=== PATIENT | male | born 1970 | race Caucasian/White ===

== ENCOUNTER 2019-08-10 22:29 | Emergency (ER) | payer OTHER, BC ==
[2019-08-10] MEDS ORDERED: ACETAMINOPHEN 500 MG TAB ONE (23:13)
[2019-08-10 23:34] LABS: Absolute Lymphocytes (CBC) 2.9 K/uL (0.7-4.9); Basophils % 2.8 % (0-1.3); Hematocrit 46.9 % (39.6-49.0); MPV 9.3 fL (7.6-11.3); RBC Red Blood Cell Count 4.96 M/uL (4.33-5.43)
[2019-08-10 23:46] LABS: Protime INR 0.98
[2019-08-10 23:48] LABS: ALT/SGPT 60 U/L (12-78); AST/SGOT 40 U/L (15-37); Albumin 3.2 g/dL (3.4-5.0); Alkaline Phosphatase 76 U/L (45-117); BUN Blood Urea Nitrogen 9 mg/dL (7-18); Bicarbonate 27 mmol/L (21-32); Bilirubin Direct 0.1 mg/dL (0-0.2); Bilirubin Total 0.4 mg/dL (0.2-1.0); Glucose Level 101 mg/dL (74-106); Magnesium 2.2 mg/dL (1.8-2.4); NT PRO-BNP 11 pg/mL (<125); Potassium 3.8 mmol/L (3.5-5.1); Protein, Total 7.4 g/dL (6.4-8.2); Sodium Level 140 mmol/L (136-145); Troponin (Emerg Dept Use Only) < 0.02 ng/mL (0.0-0.045)
[2019-08-11 01:35] LABS: Barbiturates NEGATIVE (NEGATIVE); Benzodiazepines NEGATIVE (NEGATIVE); Cocaine NEGATIVE (NEGATIVE); METHAMPHETAM NEGATIVE (NEGATIVE); Methadone NEGATIVE (NEGATIVE); Opiates NEGATIVE (NEGATIVE); Phencyclidine NEGATIVE (NEGATIVE); THC Cannibis NEGATIVE (NEGATIVE)
[2019-08-11 01:47] LABS: Urine Blood NEGATIVE (NEG); Urine Glucose NEGATIVE (NEG); Urine Protein NEGATIVE (NEG)
--- NOTE | 2019-08-11 01:49 | EDPHYS ---
Physician Documentation [facility] Name: Grant Encarnacion Age: 48 yrs Sex: Male : 1970 Arrival Date: 08/10/2019 Time: 22:32 Bed 18 Private MD: ED Physician Nilton Gomez HPI: 08/09 23:15 This 48 yrs old Male presents to ER via Ambulatory with complaints of Chest mh7 Pain. 23:15 The patient or guardian reports chest pain that is located primarily in the anterior mh7 chest wall, right. Onset: today. The pain does not radiate. Associated signs and symptoms: Pertinent negatives: abdominal pain, cough, diaphoresis, dizziness, headache, lower extremity pain, lower extremity swelling, lightheadedness, nausea, near syncope, palpitations, recent travel, shortness of breath, syncope, vomiting. The chest pain is described as aching. Duration: The patient or guardian reports a single episode, that is still ongoing, and unchanged. Modifying factors: The symptoms are alleviated by remaining still, the symptoms are aggravated by movement, twisting torso. Severity of pain: At its worst the pain was moderate today, in the emergency department the pain has improved moderately. The patient has experienced similar episodes in the past, multiple times. Patient reports right upper chest pain that started today after washing his car. He denies any injuries, SOB, nausea, vomiting, abdominal pain, fever, or other complaints.. Historical: - Allergies: 22:40 No Known Allergies; ao - Home Meds: 22:40 None [Active]; ao - PMHx: 22:40 None; ao - PSHx: 22:40 None; ao - Immunization history:: Adult Immunizations up to date. - Social history:: Smoking status: Patient reports the use of cigarette tobacco products, smokes one pack cigarettes per day. Patient uses alcohol, occasionally. Patient/guardian denies using street drugs, IV drugs. ROS: 23:15 Constitutional: Negative for fever, chills, and weight loss, Eyes: Negative for injury, mh7 pain, redness, and discharge, ENT: Negative for injury, pain, and discharge, Neck: Negative for injury, pain, and swelling, Respiratory: Negative for shortness of breath, cough, wheezing, and pleuritic chest pain, Abdomen/GI: Negative for abdominal pain, nausea, vomiting, diarrhea, and constipation, Back: Negative for injury and pain, : Negative for injury, bleeding, discharge, and swelling, MS/Extremity: Negative for injury and deformity, Skin: Negative for injury, rash, and discoloration, Neuro: Negative for headache, weakness, numbness, tingling, and seizure, Psych: Negative for depression, anxiety, suicide ideation, homicidal ideation, and hallucinations, Allergy/Immunology: Negative for hives, rash, and allergies, Endocrine: Negative for neck swelling, polydipsia, polyuria, polyphagia, and marked weight changes, Hematologic/Lymphatic: Negative for swollen nodes, abnormal bleeding, and unusual bruising. Exam: 23:15 Constitutional: This is a well developed, well nourished patient who is awake, alert, mh7 and in no acute distress. Head/Face: Normocephalic, atraumatic. Eyes: Pupils equal round and reactive to light, extra-ocular motions intact. Lids and lashes normal. Conjunctiva and sclera are non-icteric and not injected. Cornea within normal limits. Periorbital areas with no swelling, redness, or edema. ENT: Nares patent. No nasal discharge, no septal abnormalities noted. Tympanic membranes are normal and external auditory canals are clear. Oropharynx with no redness, swelling, or masses, exudates, or evidence of obstruction, uvula midline. Mucous membranes moist. Neck: Trachea midline, no thyromegaly or masses palpated, and no cervical lymphadenopathy. Supple, full range of motion without nuchal rigidity, or vertebral point tenderness. No Meningismus. 23:15 Cardiovascular: Regular rate and rhythm with a normal S1 and S2. No gallops, murmurs, or rubs. Normal PMI, no JVD. No pulse deficits. Respiratory: Lungs have equal breath sounds bilaterally, clear to auscultation and percussion. No rales, rhonchi or wheezes noted. No increased work of breathing, no retractions or nasal flaring. Abdomen/GI: Soft, non-tender, with normal bowel sounds. No distension or tympany. No guarding or rebound. No evidence of tenderness throughout. Back: No spinal tenderness. No costovertebral tenderness. Full range of motion. Skin: Warm, dry with normal turgor. Normal color with no rashes, no lesions, and no evidence of cellulitis. MS/ Extremity: Pulses equal, no cyanosis. Neurovascular intact. Full, normal range of motion. Neuro: Awake and alert, GCS 15, oriented to person, place, time, and situation. Cranial nerves II-XII grossly intact. Motor strength 5/5 in all extremities. Sensory grossly intact. Cerebellar exam normal. Normal gait. Psych: Awake, alert, with orientation to person, place and time. Behavior, mood, and affect are within normal limits. 23:15 Chest/axilla: Inspection: normal, Palpation: tenderness, that is moderate, that totally reproduces the patient's complaints, Axilla: are normal, Lymph nodes: lymphadenopathy is not appreciated. Vital Signs: 22:36 BP 133 / 72; Pulse 87; Resp 18; Temp 97.8; Pulse Ox 99% ; Weight 97.52 kg; Height 6 ft. ao 0 in. (182.88 cm); Pain 5/10; 08/10 00:00 BP 120 / 66; Pulse 74; Resp 16; Pulse Ox 94% on R/A; jb4 01:00 BP 128 / 71; Pulse 73; Resp 16; Pulse Ox 96% on R/A; jb4 08/09 22:36 Body Mass Index 29.16 (97.52 kg, 182.88 cm) ao MDM: 08/09 22:45 Patient medically screened. [facility] 08/10 06:42 Differential diagnosis: abnormal EKG, acute myocardial infarction, chest wall pain, [facility] costochondritis, gastritis, peptic ulcer disease. Data reviewed: vital signs, nurses notes, old medical records, lab test result(s), cardiac enzymes, troponin i, CBC, EKG, radiologic studies, plain films. Data interpreted: Pulse oximetry: on room air is 96 %. Interpretation: normal. Counseling: I had a detailed discussion with the patient and/or guardian regarding: the historical points, exam findings, and any diagnostic results supporting the discharge/admit diagnosis, lab results, radiology results. Response to treatment: the patient's symptoms have resolved after treatment, the patient's blood pressure is in an acceptable range, mental status has returned to baseline, the patient no longer shows bradycardia, the patient is not short of breath, the patient is not tachycardic, the patient's pain is gone, the patient's temperature has normalized. ED course: NAD, VSS, no focal neurological deficits. Patient refuses any further testing and wants to leave against medical advice. Explained the possibility of permanent disability and/or if serious medical condition is present and goes untreated. He verbalized that he understood this information as presented. he knows he can return with any concerns.. 20:03 Refusal of service: The patient/guardian displays adequate decision making capability [facility] and despite a detailed discussion of alternatives, benefits, risks, and consequences refuses: Admission to the hospital for further work-up and treatment, all lab tests. 08/09 23:02 Order name: Basic Metabolic Panel; Complete Time: 23:59 [facility] 08/09 23:02 Order name: CBC with Diff; Complete Time: 23:59 [facility] 08/09 23:02 Order name: LFT's; Complete Time: 23:59 [facility] 08/09 23:02 Order name: Magnesium; Complete Time: 23:59 [facility] 08/09 23:02 Order name: NT PRO-BNP; Complete Time: 23:59 [facility] 08/09 23:02 Order name: PT-INR; Complete Time: 23:59 [facility] 08/09 23:02 Order name: Troponin (emerg Dept Use Only); Complete Time: 23:59 [facility] 08/09 23:02 Order name: XRAY Chest (1 view) [facility] 08/09 23:02 Order name: EKG; Complete Time: 23:04 [facility] 08/09 23:02 Order name: Cardiac monitoring; Complete Time: 23:16 [facility] 08/09 23:02 Order name: EKG - Nurse/Tech; Complete Time: 23:16 [facility] 08/09 23:02 Order name: UDS [facility] 08/10 00:38 Order name: Urine Dipstick--Ancillary (enter results) [facility] 08/09 23:02 Order name: IV Saline Lock; Complete Time: 23:16 [facility] 08/09 23:02 Order name: Labs collected and sent; Complete Time: 23:16 [facility] 08/09 23:02 Order name: O2 Per Protocol; Complete Time: 23:16 [facility] 08/09 23:02 Order name: O2 Sat Monitoring; Complete Time: 23:16 7 Administered Medications: 08/09 23:27 Not Given (Patient Refused): Tylenol 1000 mg PO once jb4 Disposition: 08/10 06:42 Co-signature as Attending Physician, Nilton Gomez MD. mh7 Disposition: 08/11/19 01:49 Patient has left against medical advice. Impression: Chest pain, unspecified. - Patients states they are going to Home. - Condition is Stable. - Discharge Instructions: Nonspecific Chest Pain. Follow up: Private Physician; When: Today; Reason: Worsening of condition, Repeat Beta-HCG (48 Hours), Re-evaluation by your physician. - Problem is an acute exacerbation. - Symptoms are resolved. Signatures: Dispatcher [employer] EDMurtaza Chery RN RN Bobby Wilson RN RN jb4 Nilton Gomez MD MD mh7 Corrections: (The following items were deleted from the chart) 01:59 01:49 08/11/2019 01:49 Patients has left against medical advice. Impression: Chest jb4 pain, unspecified. Patient states they are going to Home. Condition is Stable. Follow up: Private Physician; When: Today; Reason: Worsening of condition, Repeat Beta-HCG (48 Hours), Re-evaluation by your physician. Problem is an acute exacerbation. Symptoms are resolved. mh7
--- NOTE | 2019-08-11 01:49 | ER ---
Nurse's Notes [facility] Name: Grant Encarnacion Age: 48 yrs Sex: Male : 1970 Arrival Date: 08/10/2019 Time: 22:32 Bed 18 Private MD: Diagnosis: Chest pain, unspecified Presentation: 08/09 22:36 Chief complaint: Patient states: Chest pain that started around 1900. Pt denies nausea ao and vomiting. Coronavirus screen: Proceed with normal triage. Ebola Screen: Patient negative for fever greater than or equal to 101.5 degrees Fahrenheit, and additional compatible Ebola Virus Disease symptoms Patient denies exposure to infectious person. Patient denies travel to an Ebola-affected area in the 21 days before illness onset. Initial Sepsis Screen: Does the patient meet any 2 criteria? No. Patient's initial sepsis screen is negative. Does the patient have a suspected source of infection? No. Patient's initial sepsis screen is negative. Risk Assessment: Do you want to hurt yourself or someone else? Patient reports no desire to harm self or others. Onset of symptoms was August 10, 2019 at 19:00. 22:36 Method Of Arrival: Ambulatory ao 22:36 Acuity: MOLLY 2 ao Historical: - Allergies: 22:40 No Known Allergies; ao - Home Meds: 22:40 None [Active]; ao - PMHx: 22:40 None; ao - PSHx: 22:40 None; ao - Immunization history:: Adult Immunizations up to date. - Social history:: Smoking status: Patient reports the use of cigarette tobacco products, smokes one pack cigarettes per day. Patient uses alcohol, occasionally. Patient/guardian denies using street drugs, IV drugs. Screenin:00 Abuse screen: Denies threats or abuse. Nutritional screening: No deficits noted. jb4 Tuberculosis screening: No symptoms or risk factors identified. Fall Risk None identified. Assessment: 23:00 General: Appears in no apparent distress. comfortable. Pain: Complains of pain in chest jb4 Pain does not radiate. Pain currently is 3 out of 10 on a pain scale. Quality of pain is described as pressure, Pain began 1830 Is continuous. Neuro: Level of Consciousness is awake, alert, obeys commands, Oriented to person, place, time, situation. Cardiovascular: Patient's skin is warm and dry. Rhythm is sinus rhythm. Respiratory: Airway is patent Respiratory effort is even, unlabored, Respiratory pattern is regular, symmetrical. GI: No signs and/or symptoms were reported involving the gastrointestinal system. : No signs and/or symptoms were reported regarding the genitourinary system. EENT: No signs and/or symptoms were reported regarding the EENT system. Derm: Skin is intact, Skin is dry, Skin is normal, Skin temperature is warm. 08/10 00:00 Reassessment: Patient appears in no apparent distress at this time. Patient and/or jb4 family updated on plan of care and expected duration. Pain level reassessed. Patient is alert, oriented x 3, equal unlabored respirations, skin warm/dry/pink. Patient states feeling better. 01:00 Reassessment: Patient appears in no apparent distress at this time. Patient and/or jb4 family updated on plan of care and expected duration. Pain level reassessed. Patient is alert, oriented x 3, equal unlabored respirations, skin warm/dry/pink. 01:50 Reassessment: Patient appears in no apparent distress at this time. Patient and/or jb4 family updated on plan of care and expected duration. Pain level reassessed. Patient is alert, oriented x 3, equal unlabored respirations, skin warm/dry/pink. Pt verbalized feeling better and wanting to go home. Provider notified, at the bedside speaking with patient. Pt informed of need for additional test prior to decision of D/c or admission. Pt refused additional test. Pt informed that symptoms could return and worsen up to the point of . Verbalized understanding of risk, AMA for signed, ambulated out of ED with steady gait. Vital Signs: 08/09 22:36 BP 133 / 72; Pulse 87; Resp 18; Temp 97.8; Pulse Ox 99% ; Weight 97.52 kg; Height 6 ft. ao 0 in. (182.88 cm); Pain 5/10; 08/10 00:00 BP 120 / 66; Pulse 74; Resp 16; Pulse Ox 94% on R/A; jb4 01:00 BP 128 / 71; Pulse 73; Resp 16; Pulse Ox 96% on R/A; jb4 08/09 22:36 Body Mass Index 29.16 (97.52 kg, 182.88 cm) ao ED Course: 08/09 22:32 Patient arrived in ED. cf2 22:39 Triage completed. ao 22:40 Arm band placed on right wrist. Patient placed in an exam room, on a stretcher, on ao pulse oximetry, Patient notified of wait time. 22:45 Nilton Gomez MD is Attending Physician. [facility] 23:00 Bed in low position. Call light in reach. Side rails up X 1. Verbal reassurance given. jp3 compliance monitor on. Pulse ox on. NIBP on. 23:02 Bobby Scott, RN is Primary Nurse. jb4 23:05 EKG done, by ED staff, reviewed by Nilton Gomez MD. jp3 23:15 Initial lab(s) drawn, by me, sent to lab. Inserted saline lock: 20 gauge in right jp3 antecubital area, using aseptic technique. Blood collected. Patient maintains SpO2 saturation greater than 95% on room air. 08/10 01:58 No provider procedures requiring assistance completed. IV discontinued, intact, jb4 bleeding controlled, No redness/swelling at site. Pressure dressing applied. 02:51 XRAY Chest (1 view) In Process Unspecified. EDMS Administered Medications: 08/09 23:27 Not Given (Patient Refused): Tylenol 1000 mg PO once jb4 Outcome: 08/10 01:00 AMA jb4 Condition: stable 01:59 Patient left the ED. jb4 Signatures: Dispatcher [employer] EDMS Murtaza Reese, RN RN Bobby Wilson, RN RN jb4 Raphael Robertson 3 Phillip Hearn 2 Nilton Gomez MD MD [facility] Corrections: (The following items were deleted from the chart) 01:58 01:00 BP 128 / 71; Pulse 73bpm; Resp 96bpm; Pulse Ox 96% RA; jb4 jb4
[2019-08-11 03:04] VITALS: TEMP 97.8
[2019-08-11 03:07] VITALS: BP 128/71; O2SAT 96
--- NOTE | 2019-08-11 08:40 | RAD REPORT ---
EXAM DESCRIPTION: RAD - Chest Single View - 08/11/2019 2:14 am CLINICAL HISTORY: CHEST PAIN Chest pain. COMPARISON: No comparisons FINDINGS: Portable technique limits examination quality. The lungs are grossly clear. The heart is normal in size. No displaced fractures. IMPRESSION: No acute intrathoracic process suspected.
--- NOTE | 2019-08-11 11:15 | EKG ---
Test Date: 2019-08-10 Test Time: 22:51:15 [employer] Clerk: JUN MEASUREMENT RESULTS: Intervals: Rate: 88 CA: 162 QRSD: 94 QT: 386 QTc: 467 [place]: P: 77 CA: 162 QRS: -88 T: 59 INTERPRETIVE STATEMENTS: Sinus rhythm with occasional premature ventricular complexes Incomplete right bundle branch block Left anterior fascicular block Abnormal ECG No previous ECG available for comparison Electronically Signed On 08-11-19 11:13:32 CDT by Alex Mehta
== END 2019-08-11 01:59 | disposition left against medical advice (07) ==
LOC: ER 22:29
DX: R07.9 Chest pain, unspecified (principal); F17.210 Nicotine dependence, cigarettes, uncomplicated
CPT/HCPCS: 36415; 71045; 80048; 80076; 80307; 81003; 83735; 83880; 84484; 85025; 85610; 93005; 99285